=== PATIENT | male | born 1980 | race Caucasian/White ===

== ENCOUNTER → 2017-11-02 | Outpatient (REF) | payer BC | LOC: M LAB REF 12:03 | DX: L72.12 Trichodermal cyst (principal) | CPT/HCPCS: 88304 ==

== ENCOUNTER → 2018-09-13 | Outpatient (CLI) | payer BC ==
--- NOTE | 2018-09-15 21:21 | SLEEPHOME ---
DATE OF PROCEDURE: 09/13/2018 ORDERED BY: WHITLEY Peguero Diagnostic home sleep testing was performed due to the concern for the obstructive sleep apnea syndrome in this patient with a history of irregular breathing in sleep. For testing, a nocturnal T3 respiratory monitoring device was used. Continuous record was made of pulse, oxygen saturation, airflow, chest, abdominal strain and body position. 9 hours and 46 minutes of data were reviewed. There were 7 hours and 7 minutes marked as time in bed. During the interval marked time in bed, there were 135 respiratory events identified of 10 seconds in duration or greater for an apnea-hypopnea index of 18.9. The events were primarily obstructive. Baseline pulse rate 67 beats per minute, pulse rate ranged between 50 and 107. Baseline saturation 93%. Saturations fell to 80%. Testing was performed in both the supine and nonsupine positions. IMPRESSION Abnormal home sleep testing with repetitive respiratory events and oxygen desaturations to 80% with a respiratory event index of 18.9 is consistent with the obstructive sleep apnea syndrome. RECOMMENDATIONS The patient should be encouraged to undergo formal sleep evaluation.
== END ==
LOC: M SLEEP HO 10:29
PROVIDERS: ATTEND Physician Assistant
DX: R53.83 Other fatigue (principal)

== ENCOUNTER → 2018-10-18 | Outpatient (REF) | payer BC | LOC: M LAB REF 16:53 | PROVIDERS: ATTEND Physician Assistant | DX: J02.9 Acute pharyngitis, unspecified (principal) ==

== ENCOUNTER → 2019-02-14 | Outpatient (CLI) | payer BC ==
--- NOTE | 2019-02-20 09:29 | SLEEPCENT ---
DATE OF STUDY: 02/14/2019 ORDERED BY: GATO Ribeiro Nocturnal polysomnography was performed for the titration of pressure therapy in this patient with obstructive sleep apnea syndrome, home testing revealing a respiratory event index of 18.9. For testing a ResMed Quattro full-face mask of medium size was used; 4 cm of water pressure were applied to the circuit and the lights were extinguished. 8 hours and 26 minutes of data were reviewed. There were 353.5 minutes of sleep identified. Sleep latency was prolonged at 24 minutes. Rapid eye movement (REM) latency was prolonged at 240 minutes. Sleep architecture was quite fragmented early in the study. It did improve later in the test on optimal pressure therapy. Overall sleep efficiency was 70.5%. The electrocardiogram showed a sinus rhythm with an average heart rate of 75 beats per minute. Electroencephalogram (EEG) showed reasonably normal waveforms for awake and sleep. Respiratory events persisted prompting an increase in CPAP pressure and despite optimal mask fit and minimal air leak the patient was changed to a bilevel device. Central apneas emerged prompting the addition of a backup rate. Best sleep was seen on a bilevel pressure inspiratory 12 over expiratory of 8 with a backup rate of 10 to address central events. 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 RECOMMENDATIONS: Nightly use of bilevel pressure therapy inspiratory 12 over expiratory 8 a backup rate of 10 to address significant central apneas.
== END ==
LOC: M SLEEP 19:31
PROVIDERS: ATTEND Nurse Practitioner Family
DX: G47.33 Obstructive sleep apnea (adult) (pediatric) (principal); G47.31 Primary central sleep apnea

== ENCOUNTER 2023-06-14 21:59 | Emergency (ER) | payer BC ==
[~2023-06-14] VITALS: Ht 185.4 cm; Wt 131.5 kg
[2023-06-14] MEDS ORDERED: LEVO50TA5 (22:10)
[2023-06-14] MEDS ORDERED: CHLO50TA (22:10)
[2023-06-14] MEDS ORDERED: CARV25TA (22:10)
[2023-06-14] MEDS ORDERED: AMLO1TAB25 (22:10)
[2023-06-15 00:11] LABS: BASO # 0.1 10^3/uL (0.0-0.2); BASO % 0.8 % (0.0-1.0); EOS # 0.2 10^3/uL (0.0-0.5); EOS % 2.1 % (0.0-3.0); HEMATOCRIT 49.1 % (42.0-52.0); LYMPH # 1.7 10^3/uL (1.5-5.0); LYMPH % 18.3 % (24.0-44.0); MEAN CORPUSCULAR HEMOGLOBIN 30.9 pg (27.0-33.0); MEAN CORPUSCULAR HGB CONC 34.6 g/dl (32.0-36.5); MEAN CORPUSCULAR VOLUME 89.1 fl (80.0-96.0); MONO % 10.8 % (2.0-8.0); NEUTROPHILS # 6.1 10^3/uL (1.5-8.5); NEUTROPHILS % 66.8 % (36.0-66.0); PLATELET COUNT, AUTOMATED 228 10^3/uL (150-450); RED BLOOD COUNT 5.51 10^6/uL (4.30-6.10); WHITE BLOOD COUNT 9.1 10^3/uL (4.0-10.0)
[2023-06-15 00:33] LABS: C REACTIVE PROTEIN QUANTITATIV < 0.40 MG/DL (<1.0)
[2023-06-15 00:34] LABS: BLOOD UREA NITROGEN 18 MG/DL (9-23); CARBON DIOXIDE LEVEL 31 MMOL/L (20-31); CHLORIDE LEVEL 101 MMOL/L (98-107); CREATININE FOR GFR 1.04 MG/DL (0.70-1.30); GLOMERULAR FILTRATION RATE > 60.0 (>60); GLUCOSE, FASTING 108 MG/DL (60-100); POTASSIUM SERUM 4.6 MMOL/L (3.5-5.1); SODIUM LEVEL 138 MMOL/L (136-145)
[2023-06-15 00:47] VITALS: BP 149/96; TEMP 98.6; O2SAT 98
[2023-06-15 00:51] LABS: ERYTHROCYTE SEDIMENTATION RATE 7 mm/hr (0-15)
[2023-06-15] MEDS ORDERED: CEPH500C PO (01:08)
== END 2023-06-15 01:25 | disposition home or self-care (01) ==
LOC: M ED 21:59
DX: L66.2 Folliculitis decalvans (principal); I10 Essential (primary) hypertension; E03.9 Hypothyroidism, unspecified; Z88.8 Allergy status to other drugs, medicaments and biological substances; Z79.83 Long term (current) use of bisphosphonates; Z79.890 Hormone replacement therapy; Z79.899 Other long term (current) drug therapy